=== PATIENT | male | born 2000 | race Caucasian/White ===

== ENCOUNTER 2024-10-18 15:53 | Emergency (ER) | payer BC ==
[2024-10-18 16:08] VITALS: BP 127/60; PULSE 86; RESP 18; TEMP 98.6; BMI 28.8
== END 2024-10-18 19:05 | disposition home or self-care (01) ==
LOC: FER 15:53
DX: R10.32 Left lower quadrant pain (principal); M79.89 Other specified soft tissue disorders; M25.552 Pain in left hip; W01.0XXA Fall on same level from slipping, tripping and stumbling without subsequent striking against object, initial encounter; Y92.310 Basketball court as the place of occurrence of the external cause; Y93.67 Activity, basketball
CPT/HCPCS: 72170-TC-FY; 99283-25